=== PATIENT | female | born 1970 | race Caucasian/White ===

== ENCOUNTER 2018-10-02 08:15 | Emergency (ER) | payer BC, OTHER ==
--- NOTE | 2018-10-02 08:21 | UC ---
Respiratory Complaint HPI - HPI Summary HPI Summary: Patient is 48 year old female, who present today to the urgent care with redness in her eyes and sinus congestion for past 1 week . She reports that she had some viral illnesses throughout the fall but one week ago she was at a conference where she might have encountered sick contacts and started noticing some upper respiratory congestion with sinus congestion and postnasal drip that has been going on for about 1 week. She started noticing sore throat for past 2 days along with redness in her right eye initially and her left eye is involved as well. When she woke up this morning her eyes were sticky and shut with drainage and discharge. She denies any use of contact lenses She also notices some dry cough and mild fever but no temperature taken at home along with some intermittent headaches. Denies any chest pain or shortness of breath . Denies any abdominal pain , nausea or vomiting , diarrhea or constipation. She did not try any treatment so far - History of Current Complaint Stated Complaint: SINUS, EYE IRRITATION Time Seen by Provider: 10/02/18 08:19 Hx Obtained From: Patient ?: No - LMP: 09/25/18 - Allergies/Home Medications Allergies/Adverse Reactions: Allergies Allergy/AdvReac Type Severity Reaction Status Date / Time No Known Allergies Allergy Verified 10/02/18 08:22 PMH/Surg Hx/FS Hx/Imm Hx - Additional Past Medical History Additional PMH: No significant past medical history No home meds Previously Healthy: Yes - Social History Alcohol Use: None Substance Use Type: None Smoking Status (MU): Never Smoked Tobacco Have You Smoked in the Last Year: No Review of Systems All Other Systems Reviewed And Are Negative: Yes Constitutional: Positive: Fever - Feels feverish but no temperature taken at home, Other Skin: Positive: Negative Eyes: Positive: Drainage, Eye Redness ENT: Positive: Sore Throat, Sinus Congestion, Sinus Pain/Tenderness Respiratory: Positive: Negative Cardiovascular: Positive: Negative Gastrointestinal: Positive: Negative Genitourinary: Positive: Negative Motor: Positive: Negative Neurovascular: Positive: Negative Musculoskeletal: Positive: Negative Neurological: Positive: Headache - Sinus pressure like Psychological: Positive: Negative Is Patient Immunocompromised?: No Physical Exam - Summary Physical Exam Summary: Physical Exam: Const: Appears well. No signs of apparent distress present. Alert and oriented x 3. Musculo: Walks with a normal gait. Head/Face: Atraumatic, normocephalic on inspection. Eyes: EOMI and PERRLA in both eyes. Conjunctivae redness- right more than the left. Small amount of discharge and crusting noted on the right eye and some on the left. ENT: Hearing normal, TM normal appearing bilaterally . No significant pharyngeal erythema or exudates Tender anterior cervical lymphadenopathy. Respiratory: Respirations are unlabored. Lungs clear to auscultation bilaterally, no wheezing , rhonchi or rales noted . Some tenderness on the ethmoid sinuses bilaterally CVS: Regular rate and Rhythm, S1S2 normal , no murmurs identified. Extremities: Peripheral circulation is grossly normal. Pulses 2+ Abdomen : Soft non tender , nondistended , Bowel sounds present . No guarding , rebound tenderness or rigidity noted. Skin: No lesions or rash located on the upper extremities or on the lower extremities. Neuro: Cranial nerves II to XII intact, motor and sensory intact. DTR Intact bilaterally. Mood is normal. Affect is normal. Triage Information Reviewed: Yes Vital Signs Reviewed: Yes Respiratory Course/Dx - Course Course Of Treatment: During the visit today, we discussed the findings and further plan. Her symptoms appear to be related to a viral illness with sore throat and conjunctivitis, along with some sinusitis . We discussed that she should start the eyedrops but can wait on the oral antibiotics for her sinus for 1-2 days and should fill it if there is no improvement. I will prescribe the medication to the pharmacy . Patient expressed understanding . - Differential Dx/Diagnosis Provider Diagnosis: Bilateral conjunctivitis, Sinusitis, Viral upper respiratory illness Discharge - Sign-Out/Discharge Documenting (check all that apply): Patient Departure All imaging exams completed and their final reports reviewed: No Studies - Discharge Plan Condition: Stable Disposition: HOME Prescriptions: Amoxicillin/Clavulanate TAB* [Augmentin TAB 875*] 875 mg PO BID 14 Days #28 tab Polymyx/Trimethoprim OPTH* [Polytrim OPHTH*] 1 drop BOTH EYES Q6H 5 Days #1 btl Patient Education Materials: Sinusitis (ED), Conjunctivitis (ED) Referrals: Genia Rolon MD [Primary Care Provider] - 3 Days Anibal Mcginnis MD [Medical Doctor] - 5 Days Additional Instructions: Please start using the eyedrops in both eyes. This has been prescribed to the pharmacy I will also prescribe the antibiotic for your sinuses. This could still be viral so you can wait for 1-2 days before filling the Augmentin if no improvement. Follow up with your primary care doctor in 2-3 days. Please follow up with ophthalmology if no improvement in 5 days Return to Urgent care / ER if symptoms get worse. - Billing Disposition and Condition Condition: STABLE Disposition: Home
[2018-10-02 08:31] VITALS: BP 117/72
== END 2018-10-02 09:10 | disposition home or self-care (01) ==
LOC: UCEAST 08:15
DX: H10.9 Unspecified conjunctivitis (principal); J32.9 Chronic sinusitis, unspecified; J06.9 Acute upper respiratory infection, unspecified
CPT/HCPCS: 99212; G0463